=== PATIENT | female | born 1945 | race Caucasian/White ===

== ENCOUNTER → 2016-10-08 | Outpatient (CLI) | payer MEDICARE, OTHER ==
--- NOTE | 2016-10-08 15:20 | RAD ---
EXAM DESCRIPTION: Hand,Right 3 Views CLINICAL HISTORY: 70 years,Female,PAIN IN RT HAND COMPARISON: October 14, 2015 FINDINGS: The right hand demonstrates no evidence of fractures or acute abnormalities. Soft tissues appear unremarkable. All the distal interphalangeal joints demonstrate large osteophyte changes and moderate to severe loss of joint space. Mild to moderate loss of joint space of all the proximal interphalangeal joints. And mild loss at all the metacarpal phalangeal joints. IMPRESSION: Right hand is stable no acute findings. There is moderate to severe osteo- arthritic changes at all the distal interphalangeal joints. Mild/moderate at the proximal and mild at the metacarpal phalangeal joint. Electronically signed by: Desmond Quarles MD 10/08/2016 3:17 PM CDT
== END | disposition home or self-care (01) ==
LOC: RAD 08:17
PROVIDERS: ATTEND Orthopaedic Surgery
DX: M79.641 Pain in right hand (principal)

== ENCOUNTER → 2018-12-04 | Outpatient (CLI) | payer MEDICARE, OTHER ==
--- NOTE | 2018-12-05 11:21 | RAD ---
EXAM DESCRIPTION: Knee,Right Complete: CR/DR/XR. CLINICAL HISTORY: 73 years FemaleKNEE PAIN COMPARISON: Right knee 11/26/2014. TECHNIQUE: 3 views AP lateral and patellar sunrise view right knee FINDINGS: Decreased bone density. Irregularity of the lateral tibial plateau on the AP view and lateral soft tissue swelling. Approximately 3.5 mm offset. Possible outline of the osteochondral plateau fracture on the lateral view. Moderate narrowing of the medial compartment with small marginal spurs and subchondral sclerosis. Minimal suprapatellar effusion. Deformity of the superior right patella and marginal posterior spur irregularity of the medial patellar facet and spur on the lateral patellar facet. IMPRESSION: 1. Minimally depressed fracture of the lateral right tibial plateau with irregularity of the plantar surface. Osteochondral fracture Lateral soft tissue swelling. 2. Progressive narrowing and sclerosis medial compartment and medial femoral condyle. 3. Tiny suprapatellar effusion. Possible early osteochondral lesion medial patellar facet. . CRITICAL COMMUNICATION: The critical value was discussed directly by phone by Dr. Armando, with Dr. Darren Robles at approximately 1115 hours, on 12/05/2018. Electronically signed by: Ruel Armando MD 12/05/2018 11:20 AM CDT
== END ==
LOC: RAD 10:49
PROVIDERS: ATTEND Orthopaedic Surgery
DX: S82.124A Nondisplaced fracture of lateral condyle of right tibia, initial encounter for closed fracture (principal); M25.461 Effusion, right knee; M25.861 Other specified joint disorders, right knee; M25.551 Pain in right hip